=== PATIENT | male | born 1945 ===

== ENCOUNTER 2018-08-20 12:12 | Outpatient (CLI) | payer OTHER | END 2018-08-20 17:00 | disposition home or self-care (01) | LOC: RAD 12:12 | DX: R07.89 Other chest pain (principal); Z01.818 Encounter for other preprocedural examination ==

== ENCOUNTER → 2018-08-20 12:28 | Outpatient (CLI) | payer OTHER | END | disposition home or self-care (01) | LOC: EKG 12:28 | DX: I10 Essential (primary) hypertension (principal) ==

== ENCOUNTER 2019-03-27 09:15 | Inpatient (IN) | payer OTHER ==
[~2019-03-27] VITALS: Ht 170.2 cm; Wt 76.2 kg
[2019-03-27] MEDS ORDERED: FORTAMET1000 MG PO (10:50)
[2019-03-27] MEDS ORDERED: CYMBALTA60 MG PO (10:51)
[2019-03-27] MEDS ORDERED: TAMS0.4C PO (10:51)
[2019-03-27] MEDS ORDERED: JANUVIA100 MG PO (10:51)
[2019-03-27] MEDS ORDERED: NEURONTIN300 MG PO (10:51)
[2019-03-27] MEDS ORDERED: GLIPIZIDE ER10 MG PO (10:52)
[2019-03-27] MEDS ORDERED: LOSARTAN POTASS50 MG PO (10:52)
[2019-03-27] MEDS ORDERED: MONTELUKAST SOD10 MG PO (10:52)
[2019-03-27] MEDS ORDERED: LEVO-T25 MCG PO (10:52)
== END 2019-04-03 16:14 | DRG 470 ==
LOC: SURH 04-01 06:00 → O/R 04-01 06:00 → SURH 04-01 09:15
PROVIDERS: ADMIT Orthopaedic Surgery
PROC: 0SRD0J9 Replacement of Left Knee Joint with Synthetic Substitute, Cemented, Open Approach (ICD-10-PCS; principal; 2019-04-01 09:30)
DX: M17.12 Unilateral primary osteoarthritis, left knee (principal); D62 Acute posthemorrhagic anemia; E11.9 Type 2 diabetes mellitus without complications; I10 Essential (primary) hypertension; E03.8 Other specified hypothyroidism